=== PATIENT | male | born 1980 ===

== ENCOUNTER 2021-07-29 09:50 | Outpatient (CLI) | payer BC ==
[2021-07-29 19:45] LABS: SARS-CoV-2 PCR by NAA Not Detected (NotDetected)
== END 2021-07-29 09:51 | disposition home or self-care (01) ==
LOC: LABBT 09:50
PROVIDERS: ATTEND Internal Medicine Gastroenterology
DX: Z01.812 Encounter for preprocedural laboratory examination (principal); Z20.822 Contact with and (suspected) exposure to COVID-19
CPT/HCPCS: U0003; U0005

== ENCOUNTER 2021-07-31 05:28 | Day surgery (SDC) | payer BC ==
[2021-07-24 10:58] VITALS: BMI 48.8
[2021-07-31] MEDS ORDERED: PROPOFOL 200 MG/20 ML VIAL ONE (06:50)
== END 2021-07-31 09:16 | disposition home or self-care (01) ==
LOC: SDC 05:28
PROVIDERS: ATTEND Internal Medicine Gastroenterology
PROC: 0DBN8ZX Excision of Sigmoid Colon, Via Natural or Artificial Opening Endoscopic, Diagnostic (ICD-10-PCS; principal; 2021-07-31)
PROC: 0DBL8ZX Excision of Transverse Colon, Via Natural or Artificial Opening Endoscopic, Diagnostic (ICD-10-PCS; principal; 2021-07-31)
DX: Z12.11 Encounter for screening for malignant neoplasm of colon (principal); D12.3 Benign neoplasm of transverse colon; D12.5 Benign neoplasm of sigmoid colon; G47.30 Sleep apnea, unspecified; R73.03 Prediabetes; Z80.0 Family history of malignant neoplasm of digestive organs
CPT/HCPCS: 88305; J2704